=== PATIENT | male | born 1945 | race Caucasian/White ===

== ENCOUNTER 2018-07-17 06:20 | Day surgery (SDC) | payer BC ==
[2018-07-17] MEDS ORDERED: LIDOCAINE 2% (SDV) 5 ML INJ (07:10)
[2018-07-17] MEDS ORDERED: PROPOFOL 20 ML (07:10)
[2018-07-17] MEDS ORDERED: MIDAZOLAM 1 MG/ML 2 ML INJ (07:11)
[2018-07-17] MEDS ORDERED: PHENYLephrine (100 MCG/ML) 5ML SYG (07:11)
[2018-07-17] MEDS ORDERED: LIDOCAINE 1% (MPF) 30 ML INJ (07:33)
[2018-07-17] MEDS ORDERED: DEXAMETHASONE 4 MG/ML 1 ML INJ (07:34)
[2018-07-17] MEDS ORDERED: DEXTROSE 5% 1,000 ML IV (08:00)
[2018-07-17] MEDS: DEXTROSE 5%-0.45% NACL 1,000 ML IV ×2 (08:08)
[2018-07-17] MEDS ORDERED: ONDANSETRON 4 MG INJ (08:41)
[2018-07-17] MEDS ORDERED: METOCLOPRAMIDE 10 MG INJ (08:42)
[2018-07-17] MEDS: POLYMYXIN/BACITRACIN 1L IRRIG (09:25)
[2018-07-17] MEDS: BUPIVACAINE 0.5% (SDV) 30 ML INJ (09:25)
[2018-07-17] MEDS ORDERED: MEPERIDINE 25 MG INJ IV (09:30)
[2018-07-17] MEDS ORDERED: FENTAnyl 50 MCG/ML VIAL IV ×2 (09:30)
[2018-07-17] MEDS ORDERED: LABETALOL HCL 20MG INJ IV (09:30)
[2018-07-17] MEDS ORDERED: ONDANSETRON 4 MG INJ IV (09:30)
[2018-07-17] MEDS ORDERED: OXYCODONE/ACETAMINOPHEN (5/325) TAB PO ×2 (09:30)
[2018-07-17] MEDS ORDERED: KETOROLAC 15 MG INJ IV (10:30)
== END 2018-07-17 11:50 | disposition home or self-care (01) ==
LOC: SDS 06:20
DX: M20.5X2 Other deformities of toe(s) (acquired), left foot (principal); D16.32 Benign neoplasm of short bones of left lower limb; M65.872 Other synovitis and tenosynovitis, left ankle and foot; G57.82 Other specified mononeuropathies of left lower limb; I10 Essential (primary) hypertension; E11.9 Type 2 diabetes mellitus without complications; E78.5 Hyperlipidemia, unspecified; E66.9 Obesity, unspecified; Z68.30 Body mass index [BMI] 30.0-30.9, adult
CPT/HCPCS: 28291; 82962; 88304